=== PATIENT | male | born 1985 | race Caucasian/White ===

== ENCOUNTER 2017-04-26 21:47 | Emergency (ER) | payer OTHER ==
[2017-04-26 22:21] VITALS: BP 137/62; PULSE 77; TEMP 98; BMI 21.7
[2017-04-27] MEDS ORDERED: ONDANSETRON *ODT* 4 MG TABLET SL ONE (00:29)
--- NOTE | 2017-04-27 00:29 | PDOC ---
History of Present Illness - General History Source: Patient Exam Limitations: No Limitations - History of Present Illness Initial Comments: 04/27/17 00:32 The patient is a 31 year old male with no significant past medical history who presents to the ED for less than 24 hours of nausea with lack of appetite. Patient denies abdominal pain, vomiting, and diarrhea. Denies any sick contacts. The patient denies fever, chills, cough, SOB, chest pain, and palpitations. Allergies: NKDA Social History: No alcohol, tobacco, or drug use reported. Past Surgical History: None reported PCP: None reported <Monisha Mckeon - Last Filed: 04/27/17 00:32> - General History Source: Patient <Destin Carson - Last Filed: 04/27/17 02:09> - General Chief Complaint: Nausea/Vomiting Stated Complaint: NAUSEA Time Seen by Provider: 04/27/17 00:26 Past History <Monisha Mckeon - Last Filed: 04/27/17 00:32> - Past Medical History Psychiatric Problems: Yes (Anxiety) - Immunization History Immunization Up to Date: Yes - Psycho/Social/Smoking Cessation Hx Anxiety: No Suicidal Ideation: No Smoking Status: No Smoking History: Never smoked Have you smoked in the past 12 months: No Number of Cigarettes Smoked Daily: 0 Cigars Per Day: 0 Information on smoking cessation initiated: No Hx Alcohol Use: No Drug/Substance Use Hx: No Substance Use Type: None <Destin Carson - Last Filed: 04/27/17 02:09> - Past Medical History Allergies/Adverse Reactions: Allergies Allergy/AdvReac Type Severity Reaction Status Date / Time No Known Allergies Allergy Verified 04/26/17 22:18 Home Medications: Ambulatory Orders Ondansetron [Zofran *Odt*] 4 mg SL TID #30 od.tablet 04/27/17 Review of Systems - Review of Systems Able to Perform ROS?: Yes Comments:: 04/27/17 00:32 CONSTITUTIONAL: +lack of appetite Absent: fever, no chills, no fatigue EYES: Absent: visual changes ENT: Absent: ear pain, no sore throat CARDIOVASCULAR: Absent: chest pain, no palpitations RESPIRATORY: Absent: cough, no SOB GI: +nausea Absent: abdominal pain, no vomiting, no constipation, no diarrhea GENITOURINARY: Absent: dysuria, no frequency, no hematuria MUSCULOSKELETAL: Absent: back pain, no arthralgia, no myalgia SKIN: Absent: rash NEURO: Absent: headache <Monisha Mckeon - Last Filed: 04/27/17 00:32> *Physical Exam - Vital Signs Last Vital Signs Temp Pulse Resp BP Pulse Ox 98.0 F 77 16 137/62 97 04/26/17 22:18 04/26/17 22:18 04/26/17 22:18 04/26/17 22:18 04/26/17 22:18 - Physical Exam Comments: 04/27/17 00:32 GENERAL: Well-appearing, well-nourished. No apparent distress. HEENT: Normocephalic, atraumatic. PERRL, EOM intact. Slightly dry mucous membranes. CARDIOVASCULAR: Normal S1, S2. Regular rate and rhythm. PULMONARY: Clear to auscultation bilaterally. ABDOMEN: Soft, non-distended, non-tender. EXTREMITIES: Normal ROM in all four extremities. No gross deformities. SKIN: Warm, dry. No rash NEUROLOGICAL: No focal neurological deficits. <Monisha Mckeon - Last Filed: 04/27/17 00:32> - Vital Signs Last Vital Signs Temp Pulse Resp BP Pulse Ox 98.0 F 77 16 137/62 97 04/26/17 22:18 04/26/17 22:18 04/26/17 22:18 04/26/17 22:18 04/26/17 22:18 <Destin Carson - Last Filed: 04/27/17 02:09> Medical Decision Making - Medical Decision Making 04/27/17 02:09 Dr. Carson: The scribe's documentation has been prepared under my direction and personally reviewed by me in its entirery. I confirm that the note above accurately reflects all work, treatment, procedures, and medical decision making performed by me. <Destin Carson - Last Filed: 04/27/17 02:09> *DC/Admit/Observation/Transfer - Attestations Scribe Attestion: 04/27/17 00:32 Documentation prepared by Monisha Mckeon, acting as medical imaging specialist for Destin Carson MD/. <Monisha Mckeon - Last Filed: 04/27/17 00:32> - Discharge Dispostion Admit: No <Destin Carson - Last Filed: 04/27/17 02:09> Diagnosis at time of Disposition: Nausea - Discharge Dispostion Disposition: HOME Condition at time of disposition: Improved - Prescriptions Prescriptions: Ondansetron [Zofran *Odt*] 4 mg SL TID #30 od.tablet - Patient Instructions Printed Discharge Instructions: DI for Nausea -- Adult
[2017-04-27] MEDS ORDERED: ONDANSETRON *ODT* 4 MG TABLET ONE (01:16)
== END 2017-04-27 02:41 | disposition home or self-care (01) ==
LOC: JER 21:47
DX: R11.2 Nausea with vomiting, unspecified (principal)
CPT/HCPCS: 99281-25

== ENCOUNTER 2017-10-07 18:58 | Emergency (ER) | payer OTHER ==
[2017-10-07 19:30] VITALS: BP 137/83; PULSE 70; TEMP 98.3; BMI 19.8
[2017-10-07] MEDS ORDERED: IBUPROFEN 600 MG TABLET (FP) PO ONE ×2 (19:52→20:01)
--- NOTE | 2017-10-07 20:27 | PDOC ---
History of Present Illness - General Chief Complaint: Sore Throat Stated Complaint: COUGHING Time Seen by Provider: 10/07/17 19:35 History Source: Patient Exam Limitations: No Limitations - History of Present Illness Initial Comments: 10/07/17 20:22 32-year-old male presents the emergency room with complaints of sore throat for the past 2 days now with loss of voice times one day. Patient denies fever, chills, cough, difficulty breathing, or recent travel. Patient also denies recent illness. Patient states has been taking Montejo's with no improvement. Patient does state pain with swallowing especially with solid foods. Timing/Duration: reports: yesterday Severity: reports: mild Possible Cause: Yes: no prior episodes Modifying Factors: improves with: other Associated Symptoms: reports: sore throat Past History - Travel Traveled outside of the country in the last 30 days: No - Past Medical History Allergies/Adverse Reactions: Allergies Allergy/AdvReac Type Severity Reaction Status Date / Time No Known Allergies Allergy Verified 10/07/17 19:26 Home Medications: Ambulatory Orders NK [No Known Home Medication] 10/07/17 COPD: No Psychiatric Problems: Yes (Anxiety) - Immunization History Immunization Up to Date: Yes - Suicide/Smoking/Psychosocial Hx Smoking Status: No Smoking History: Never smoked Have you smoked in the past 12 months: No Number of Cigarettes Smoked Daily: 0 Cigars Per Day: 0 Hx Alcohol Use: No Drug/Substance Use Hx: No Substance Use Type: None Patient Lives Alone: No Lives with/in: spouse/SO Review of Systems - Review of Systems Able to Perform ROS?: Yes Constitutional: No: Symptoms Reported HEENTM: Yes: Difficulty Swallowing, Other Respiratory: No: Symptoms reported Cardiac (ROS): No: Symptoms Reported : No: Symptoms Reported Musculoskeletal: No: Symptoms Reported Integumentary: No: Symptoms Reported Hematologic/Lymphatic: No: Symptoms Reported *Physical Exam - Vital Signs Last Vital Signs Temp Pulse Resp BP Pulse Ox 98.3 F 70 20 137/83 97 10/07/17 19:26 10/07/17 19:26 10/07/17 19:26 10/07/17 19:26 10/07/17 19:26 - Physical Exam General Appearance: Yes: Nourished, Appropriately Dressed. No: Apparent Distress HEENT: positive: EOMI, RUPALI, TMs Normal, Muffled/Hoarse voice, Pharyngeal Erythema (mild generalized). negative: Pale Conjunctivae, Tonsillar Exudate Neck: positive: Normal Thyroid. negative: Lymphadenopathy (R), Lymphadenopathy (L) Respiratory/Chest: positive: Lungs Clear, Normal Breath Sounds. negative: Respiratory Distress, Accessory Muscle Use Cardiovascular: positive: Regular Rhythm, Regular Rate. negative: Murmur Integumentary: positive: Normal Color, Warm, Moist Neurologic: positive: Motor Strength 5/5 (ambulatory) ED Treatment Course - ADDITIONAL ORDERS Additional order review: 10/07/17 20:00 Group A Strep Rapid Antigen - Final Throat - Medications Given in the ED: ED Medications Discontinued Medications Generic Name Dose Route Start Last Admin Trade Name Freq PRN Reason Stop Dose Admin Ibuprofen 600 mg 10/07/17 19:52 10/07/17 20:02 Motrin - PO 10/07/17 19:53 600 mg ONCE ONE Administration Medical Decision Making - Medical Decision Making 10/07/17 20:07 Patient with sore throat and noted loss of voice here in the ER. Patient ordered for rapid strep secondary to pharyngeal erythema. Patient also ordered for Motrin for discomfort. 10/07/17 20:28 rapid strep negative *DC/Admit/Observation/Transfer Diagnosis at time of Disposition: Laryngitis - Discharge Dispostion Disposition: HOME Condition at time of disposition: Good - Referrals - Patient Instructions Printed Discharge Instructions: DI for Laryngitis Additional Instructions: At this time I recommend resting your voice and continue with Montejo's. You may also purchase [id number] Chloraseptic spray and use as recommended. I also recommend taking Motrin for discomfort, drinking warm fluids, and avoid abrasive foods. - Post Discharge Activity
== END 2017-10-07 20:37 | disposition home or self-care (01) ==
LOC: JERFT 18:58
DX: J04.0 Acute laryngitis (principal)
CPT/HCPCS: 87070; 87430; 99281-25

== ENCOUNTER 2018-01-06 05:00 | Emergency (ER) | payer OTHER ==
--- NOTE | 2018-01-06 05:04 | PDOC ---
History of Present Illness - General Stated Complaint: ABDOMINAL PAIN Time Seen by Provider: 01/06/18 05:04 - History of Present Illness Initial Comments: 32 year with PMH of anxiety presenting with sudden onset left lower quadrant abdominal pain at 4:00 AM with sudden onset nausea and NBNB vomiting. Denies any out of the ordinary food ingestion or recent travel. Of note, every member of his house had similar symptoms over the last two weeks. Denies fevers, chills , constipation, chest pain, or other sick symptoms. 01/06/18 05:25 Past History - Past Medical History Allergies/Adverse Reactions: Allergies Allergy/AdvReac Type Severity Reaction Status Date / Time No Known Allergies Allergy Verified 01/06/18 05:10 Home Medications: Ambulatory Orders NK [No Known Home Medication] 10/07/17 COPD: No Psychiatric Problems: Yes (Anxiety) - Immunization History Immunization Up to Date: Yes - Suicide/Smoking/Psychosocial Hx Smoking Status: No Smoking History: Never smoked Have you smoked in the past 12 months: No Number of Cigarettes Smoked Daily: 0 Cigars Per Day: 0 Hx Alcohol Use: No Drug/Substance Use Hx: No Substance Use Type: None Review of Systems - Review of Systems Constitutional: No: Chills, Fever HEENTM: No: Blurred Vision, Double Vision Respiratory: No: Cough, Shortness of Breath, Wheezing Cardiac (ROS): No: Chest Pain, Edema, Irregular Heart Rate ABD/GI: Yes: Nausea, Vomiting. No: Diarrhea : No: Burning, Dysuria, Discharge, Frequency Musculoskeletal: No: Back Pain, Muscle Pain Integumentary: No: Pruritus, Rash Psychiatric: Yes: Anxiety. No: Depression *Physical Exam - Physical Exam General Appearance: Yes: Nourished, Appropriately Dressed, Apparent Distress, Moderate Distress HEENT: positive: EOMI, RUPALI, Normal ENT Inspection, Normal Voice Neck: positive: Trachea midline, Normal Thyroid, Supple. negative: Tender, Rigid Respiratory/Chest: positive: Lungs Clear, Normal Breath Sounds. negative: Chest Tender, Respiratory Distress Cardiovascular: positive: Regular Rhythm, Regular Rate Gastrointestinal/Abdominal: positive: Normal Bowel Sounds, Tender (diffusely tender but non paritoneal or rigid), Flat, Soft Musculoskeletal: positive: Normal Inspection. negative: CVA Tenderness Extremity: positive: Normal Capillary Refill, Normal Inspection, Normal Range of Motion. negative: Tender Integumentary: positive: Normal Color, Dry, Warm ED Treatment Course - LABORATORY CBC & Chemistry Diagram: 01/06/18 05:52 01/06/18 05:52 Medical Decision Making - Medical Decision Making 32 year old previously healthy with LLQ abdominal pain but TTP diffusely on exam and gastroenteritis (originally was just vomiting but had diarrhea while in the ED). Pain, nausea, and vomiting improved with Zofran, Tylenol, and 1 L NS. 01/06/18 06:14 mixing picker tender in RLQ will scan. Patient signed out to Dr. Tamayo in stable condition pending CG abdomen pelvis for r/o appendicitis. 01/06/18 6:45 *DC/Admit/Observation/Transfer Diagnosis at time of Disposition: Abdominal pain - Discharge Dispostion Disposition: HOME Condition at time of disposition: Good - Referrals - Patient Instructions Printed Discharge Instructions: DI for Abdominal Pain-Adult Additional Instructions: You were evaluated today for abdominal pain. A CT scan of your abdomen showed no concerning findings. Please return to the Emergency Department for any new/ worsening/concerning symptoms. - Post Discharge Activity
[2018-01-06 05:12] VITALS: TEMP 98.9; BMI 21.2
[2018-01-06] MEDS ORDERED: ONDANSETRON 4 MG/2 ML VIAL IVPUSH ONE (05:21)
[2018-01-06] MEDS ORDERED: SODIUM CHLORIDE 0.9% 1000 ML INFUS.BAG IV ONE (05:21)
[2018-01-06] MEDS ORDERED: ACETAMINOPHEN 1000 MG/100 ML VIAL (NON FORMULARY) IVPB ONE (05:22)
[2018-01-06] MEDS ORDERED: ACETAMINOPHEN INJECTION 100 ML IVPB ONE (05:26)
[2018-01-06] MEDS ORDERED: ONDANSETRON 4 MG/2 ML VIAL ONE (05:27)
[2018-01-06 06:09] LABS: BASO % 0.2 % (0-2.0); HEMATOCRIT 52.5 % (35.4-49); HEMOGLOBIN 17.8 GM/dL (11.7-16.9); LYMPH % 4.5 % (8-40); MCH 31.3 pg (25.7-33.7); MEAN CELL VOLUME 92.1 fl (80-96); MONO % 5.9 % (3.8-10.2); NEUT % 88.4 % (42.8-82.8); PLATELET COUNT 189 K/MM3 (134-434); RDW 11.7 % (11.9-15.9); WHITE BLOOD COUNT 16.9 K/mm3 (4.0-10.0)
--- NOTE | 2018-01-06 06:19 | PDOC ---
Attending Attestation - Resident Resident Name: Elba Farley - ED Attending Attestation I have performed the following: I have examined & evaluated the patient, The case was reviewed & discussed with the resident, I agree w/resident's findings & plan, Exceptions are as noted - HPI HPI: 01/06/18 06:19 32y M hx of anxiety presents with compalint of lower abd pain associated with nausea/vomiting that started arond 4am. Pt notes the pain was 10/10, intermittent, now more in the right LQ, denies any fever/chills, no radiation of the pain to the back. Denies any testicular pain. On exam the pt has moderate tenderness in the RLQ no rebound/guarding testicular exam is unremarkable without any testicula tenderness or swelling, with normal testicular lie will obtain CT abdomen, ua, blood work
[2018-01-06 06:30] LABS: ALBUMIN 3.8 g/dl (3.4-5.0); ANION GAP 11 (8-16); BILIRUBIN,TOTAL 1.6 mg/dL (0.2-1.0); BLOOD UREA NITROGEN 13 mg/dL (7-18); CALCIUM 7.2 mg/dL (8.5-10.1); CHLORIDE 108 mmol/L (98-107); CO2 23 mmol/L (21-32); GLUCOSE,RANDOM 99 mg/dL (74-106); MAGNESIUM 1.5 mg/dL (1.8-2.4); POTASSIUM 3.2 mmol/L (3.5-5.1); SGOT/AST 9 U/L (15-37); SGPT/ALT 16 U/L (12-78); SODIUM 142 mmol/L (136-145); TOT PROT 6.8 g/dl (6.4-8.2)
[2018-01-06 06:36] LABS: ALK PHOS 70 U/L (45-117)
[2018-01-06 06:54] LABS: PHOSPHOROUS 0.6 mg/dL (2.5-4.9)
[2018-01-06 07:37] LABS: URINE APPEARANCE CLEAR; URINE BILIRUBIN NEGATIVE (NEGATIVE); URINE BLOOD NEGATIVE (NEGATIVE); URINE COLOR YELLOW; URINE GLUCOSE (UA) NEGATIVE (NEGATIVE); URINE KETONE 1+ (NEGATIVE); URINE LEUK ESTERASE NEGATIVE (NEGATIVE); URINE NITRITE NEGATIVE (NEGATIVE); URINE PROTEIN NEGATIVE (NEGATIVE); URINE UROBILINOGEN NEGATIVE mg/dL (0.2-1.0)
--- NOTE | 2018-01-06 07:49 | PDOC ---
*Physical Exam - Vital Signs Last Vital Signs Temp Pulse Resp BP Pulse Ox 98.9 F 87 20 113/72 100 01/06/18 05:11 01/06/18 05:11 01/06/18 05:11 01/06/18 05:11 01/06/18 05:11 - Physical Exam Comments: 01/06/18 10:09 GENERAL: The patient is awake, alert, and fully oriented, Nontoxic - in no acute distress. HEAD: Normocephalic, atraumatic. LUNGS: Breath sounds equal, clear to auscultation bilaterally. No wheezes, no rhonchi, no rales. HEART: Regular rate and rhythm, normal S1 and S2 without murmur, rub or gallop. ABDOMEN: Soft, nontender, normoactive bowel sounds. No guarding, no rebound.. No CVA tenderness ED Treatment Course - LABORATORY CBC & Chemistry Diagram: 01/06/18 05:52 01/06/18 05:52 - ADDITIONAL ORDERS Additional order review: Laboratory Results 01/06/18 01/06/18 05:52 05:52 Sodium 142 Potassium 3.2 L D Chloride 108 H Carbon Dioxide 23 D Anion Gap 11 BUN 13 Creatinine 1.0 D Creat Clearance w eGFR > 60 Random Glucose 99 Calcium 7.2 L Phosphorus 0.6 L* Magnesium 1.5 L Total Bilirubin 1.6 H D AST 9 L D ALT 16 Alkaline Phosphatase 70 Total Protein 6.8 Albumin 3.8 Lipase 73 01/06/18 05:52 RBC 5.70 H MCV 92.1 MCHC 34.0 RDW 11.7 L MPV 9.0 Neutrophils % 88.4 H D Lymphocytes % 4.5 L D Monocytes % 5.9 Eosinophils % 1.0 Basophils % 0.2 - Medications Given in the ED: ED Medications Discontinued Medications Generic Name Dose Route Start Last Admin Trade Name Freq PRN Reason Stop Dose Admin Acetaminophen 1,000 mg 01/06/18 05:22 01/06/18 05:51 Ofirmev Injection - IVPB 01/06/18 05:23 1,000 mg ONCE ONE Administration Ondansetron HCl 4 mg 01/06/18 05:21 01/06/18 05:51 Zofran Injection IVPUSH 01/06/18 05:22 4 mg ONCE ONE Administration Sodium Chloride 1,000 ml 01/06/18 05:21 01/06/18 05:51 Normal Saline - IV 01/06/18 05:22 1,000 ml ONCE ONE Administration Medical Decision Making - Medical Decision Making 01/06/18 07:46 32 y.o. male with no reported PMH presents c/o acute onset of LLQ pain that woke him from sleep this morning. Patient describes the pain as 10/10, "twisting" with some radiation to his RLQ. Patient unable to identify any triggering or relieving factors and notes 7 episodes of NBNB emesis and 2 episodes of watery brown diarrhea. Patient denies any dysuria/hematuria, testicular pain. Benign exam by overnight medical team. CT Abdomen pending. Patient currently resting comfortably, pain resolved. Serial abdominal exams 01/06/18 10:04 CT Abdomen negative for appendicitis, notes mildly distended loops of small bowel in LUQ/LLQ suggest enteritis picture consistent with patient's presenting symptoms. Patient remains afebrile, denies current abdominal pain. Will discharge patient home with supportive care and return precautions including increased pain severity, systemic signs of infection including fever/chills or n /v/d. *DC/Admit/Observation/Transfer Diagnosis at time of Disposition: Abdominal pain - Discharge Dispostion Disposition: HOME Condition at time of disposition: Good Admit: No - Referrals - Patient Instructions Printed Discharge Instructions: DI for Abdominal Pain-Adult Additional Instructions: You were evaluated today for abdominal pain. A CT scan of your abdomen showed no concerning findings. Please return to the Emergency Department for any new/ worsening/concerning symptoms. - Post Discharge Activity
[2018-01-06] MEDS ORDERED: POTASSIUM CHLORIDE TABS 20 MEQ TABLET.ER (FP) PO ONE ×2 (10:13→10:30)
[2018-01-06 10:35] VITALS: BP 120/74; PULSE 80
== END 2018-01-06 10:35 | disposition home or self-care (01) ==
LOC: JER 05:00
PROC: 3E033NZ Introduction of Analgesics, Hypnotics, Sedatives into Peripheral Vein, Percutaneous Approach (ICD-10-PCS; principal; 2018-01-06)
PROC: 3E033GC Introduction of Other Therapeutic Substance into Peripheral Vein, Percutaneous Approach (ICD-10-PCS; 2018-01-06)
DX: K52.9 Noninfective gastroenteritis and colitis, unspecified (principal)
CPT/HCPCS: 36415; 74177-TC; 80053; 81003; 83690; 83735; 84100; 85025; 99283-25

== ENCOUNTER 2023-03-14 17:37 | Emergency (ER) | payer OTHER ==
[2023-03-14 17:56] VITALS: BP 114/76; PULSE 74; RESP 16; TEMP 98.2; BMI 22.7
[2023-03-14] MEDS ORDERED: SODIUM CHLORIDE 0.9% 500 ML INFUS.BAG IV ONE (20:22)
[2023-03-14] MEDS ORDERED: ONDANSETRON 4 MG/2 ML VIAL IVPUSH ONE (20:22)
[2023-03-14] MEDS ORDERED: ONDANSETRON 4 MG/2 ML VIAL ONE (20:30)
[2023-03-14 20:54] LABS: HEMATOCRIT 45.6 % (35.4-49); LYMPH % 20.6 % (8-40); MCH 32.2 pg (25.7-33.7); MCHC 35.1 g/dl (32.0-35.9); MEAN CELL VOLUME 91.8 fl (80-96); MONO % 9.2 % (3.8-10.2); NEUT % 65.2 % (42.8-82.8); PLATELET COUNT 202 10^3/uL (134-434); RBC 4.97 M/mm3 (4.00-5.60); RDW 11.8 % (11.9-15.9); WHITE BLOOD COUNT 8.1 K/mm3 (4.0-10.0)
[2023-03-14 21:04] LABS: CALCIUM 9.1 mg/dL (8.5-10.1)
[2023-03-14 21:05] LABS: ALBUMIN 4.2 g/dl (3.4-5.0); BLOOD UREA NITROGEN 8.6 mg/dL (7-18)
[2023-03-14 21:08] LABS: CREATININE 0.8 mg/dL (0.55-1.3)
[2023-03-14 21:09] LABS: TOT PROT 7.8 g/dl (6.4-8.2)
== END 2023-03-14 21:59 | disposition home or self-care (01) ==
LOC: JERFT 17:37 → JER 17:37 → JERFT 21:59
PROC: 3E033GC Introduction of Other Therapeutic Substance into Peripheral Vein, Percutaneous Approach (ICD-10-PCS; principal; 2023-03-14)
DX: R11.0 Nausea (principal); R53.83 Other fatigue; R63.8 Other symptoms and signs concerning food and fluid intake; R10.84 Generalized abdominal pain; Z20.822 Contact with and (suspected) exposure to COVID-19
CPT/HCPCS: 0241U-QW; 36415; 80053; 83690; 85025; 99284-25